=== PATIENT | male | born 1995 | race Two or more races ===

== ENCOUNTER 2020-12-14 21:45 | Emergency (ER) | payer OTHER ==
[~2020-12-14] VITALS: Ht 180.3 cm; Wt 149.7 kg
[2020-12-14 23:57] VITALS: BP 144/79
== END 2020-12-15 00:55 | disposition home or self-care (01) ==
LOC: EDBD 21:45 → ER 21:49
DX: J02.9 Acute pharyngitis, unspecified (principal); M54.2 Cervicalgia
CPT/HCPCS: 70490

== ENCOUNTER 2022-06-17 23:06 | Emergency (ER) | payer MEDICAID, OTHER ==
[~2022-06-17] VITALS: Ht 177.8 cm; Wt 290.0 kg
[2022-06-17 23:33] VITALS: BP 114/73
== END 2022-06-18 00:30 | disposition left against medical advice (07) ==
LOC: ER 23:06
DX: R09.89 Other specified symptoms and signs involving the circulatory and respiratory systems (principal); Z53.21 Procedure and treatment not carried out due to patient leaving prior to being seen by health care provider; W22.8XXA Striking against or struck by other objects, initial encounter; Y93.89 Activity, other specified; Y92.89 Other specified places as the place of occurrence of the external cause; Y99.8 Other external cause status
CPT/HCPCS: 70360